=== PATIENT | male | born 1985 | race Caucasian/White ===

== ENCOUNTER 2017-03-02 12:26 | Emergency (ER) | payer SELFPAY ==
[~2017-03-02] VITALS: Ht 188 cm; Wt 113.4 kg
--- NOTE | 2017-03-02 12:52 | Emergency Room Report ---
History of Present Illness General Chief Complaint: Abdominal Pain Present Illness HPI 31 YO Male presents to the ED c/o 05/28 in severity right flank and RLQ pain acute onset with nausea and vomiting x 1 day. pt. denies hx of previous similar episodes, denies hematuria,dysuria, constipation or diarrhea. Pt. denies Pmhx or being rx'd medications, no allergies, no recent travel. pt. states onset of pain was right after eating lunch. Pt. denies fevers, chills, rashes or joint pain. denies blood in the vomit or stool. Denies CP, Palpitations, LOC, AMS, dizziness, Changes in Vision, Sensation, paresthesias, or a sudden severe headache. Allergies: Coded Allergies: No Known Allergies (Unverified , 03/02/17) Patient History Past Medical History: see triage record Past Surgical History: none Pertinent Family History: none Reviewed Nursing Documentation: PMH: Agreed, PSxH: Agreed Review of Systems All Other Systems: negative except mentioned in HPI Physical Exam Vital Signs Date Time Temp Pulse Resp B/P Pulse Ox O2 Delivery O2 Flow Rate FiO2 03/02/17 12:38 97.5 63 18 142/90 98 Room Air Sp02 EP Interpretation: reviewed, normal General Appearance: alert, GCS 15, non-toxic, moderate distress Head: normocephalic, atraumatic Eyes: bilateral eye PERRL, bilateral eye normal inspection ENT: hearing grossly normal, normal pharynx, no angioedema, normal voice Neck: full range of motion, supple/symm/no masses Respiratory: lungs clear, normal breath sounds, speaking full sentences Cardiovascular #1: regular rate, rhythm Gastrointestinal: normal bowel sounds, soft, no guarding, no rebound, other - TTP to right LLQ, pt. also has right CVA TTP, mild RUQ ttp. non- distended , soft abdomen Rectal: deferred Genitourinary: normal inspection, CVA tenderness (R) Musculoskeletal: back normal, gait/station normal, normal range of motion, non- tender Neurologic: alert, oriented x3, responsive, motor strength/tone normal, sensory intact, speech normal Psychiatric: judgement/insight normal, memory normal, mood/affect normal Skin: normal color, no rash, warm/dry, well hydrated Medical Decision Making PA Attestation Dr. Faye is my supervising Physician whom patient management has been discussed with. Diagnostic Impression: Primary Impression: Kidney stones ER Course 31 YO Male presents to the ED c/o 05/28 in severity right flank and RLQ pain acute onset with nausea and vomiting x 1 day. pt. denies hx of previous similar episodes, denies hematuria,dysuria, constipation or diarrhea. Pt. denies Pmhx or being rx'd medications, no allergies, no recent travel. pt. states onset of pain was right after eating lunch. Pt. denies fevers, chills, rashes or joint pain. denies blood in the vomit or stool. Denies CP, Palpitations, LOC, AMS, dizziness, Changes in Vision, Sensation, paresthesias, or a sudden severe headache. Ddx considered but are not limited to Diverticulitis, acute appendicitis, diarrhea,UC, PUD, GE, pancreatitis, gallstone, kidney stone, pyelonephritis, UTI , obstruction. Vital signs: are WNL, pt. is afebrile H&PE are most consistent with possible stone or appendicitis will do lab work , UA, and imaging. ORDERS: -CBC: elevated WBC's at 15.0 with left shift -CMP: unremarkable - Lipase: WNL - UA: RBC's , elevated occult blood, no evidence of infection, suspicious for stone. - CT abdomen and pelvis no contrast: 5mm non obstructing stones in the right and left ureters ( three total) mild hydro, normal appendix per official radiology report. ED INTERVENTIONS: -- 1000NS --4mg IV Morphine for pain ( x 2 ) - Toradol 30mg IV - Flomax PO -1 gram Rocephin IV DISCHARGE: At this time pt. is stable for d/c to home. Will provide printed patient care instructions, and any necessary prescriptions. Care plan and follow up instructions have been discussed with the patient prior to discharge. Labs Test 03/02/17 13:10 White Blood Count 15.0 K/UL (4.8-10.8) Red Blood Count 5.25 M/UL (4.70-6.10) Hemoglobin 15.8 G/DL (14.2-18.0) Hematocrit 44.5 % (42.0-52.0) Mean Corpuscular Volume 85 FL (80-99) Mean Corpuscular Hemoglobin 30.1 PG (27.0-31.0) Mean Corpuscular Hemoglobin Concent 35.5 G/DL (32.0-36.0) Red Cell Distribution Width 11.4 % (11.6-14.8) Platelet Count 321 K/UL (150-450) Mean Platelet Volume 6.5 FL (6.5-10.1) Neutrophils (%) (Auto) 80.9 % (45.0-75.0) Lymphocytes (%) (Auto) 15.5 % (20.0-45.0) Monocytes (%) (Auto) 2.7 % (1.0-10.0) Eosinophils (%) (Auto) 0.4 % (0.0-3.0) Basophils (%) (Auto) 0.6 % (0.0-2.0) Urine Color Nga Urine Appearance Cloudy Urine pH 6 (4.5-8.0) Urine Specific [place] 1.025 (1.005-1.035) Urine Protein 2+ (NEGATIVE) Urine Glucose (UA) Negative (NEGATIVE) Urine Ketones Negative (NEGATIVE) Urine Occult Blood 5+ (NEGATIVE) Urine Nitrite Negative (NEGATIVE) Urine Bilirubin Negative (NEGATIVE) Urine Ictotest Neg Urine Urobilinogen 1 MG/DL (0.0-1.0) Urine Leukocyte Esterase 1+ (NEGATIVE) Urine RBC 15-20 /HPF (0 - 0) Urine WBC 2-4 /HPF (0 - 0) Urine Squamous Epithelial Cells Few /LPF (NONE/OCC) Urine Bacteria Few /HPF (NONE) Sodium Level 143 mEQ/L (135-145) Potassium Level 4.0 mEQ/L (3.4-4.9) Chloride Level 106 mEQ/L (98-107) Carbon Dioxide Level 23 mEQ/L (20-30) Anion Gap 14 (5-15) Blood Urea Nitrogen 16 mg/dL (7-23) Creatinine 1.0 mg/dL (0.7-1.2) Estimat Glomerular Filtration Rate > 60 mL/min (>60) Glucose Level 131 mg/dL (74-106) Calcium Level 9.6 mg/dL (8.6-10.2) Total Bilirubin 0.3 mg/dL (0.0-1.2) Aspartate Amino Transf (AST/SGOT) 21 U/L (5-40) Alanine Aminotransferase (ALT/SGPT) 35 U/L (3-41) Alkaline Phosphatase 66 U/L (40-129) Total Protein 7.2 g/dL (6.6-8.7) Albumin 4.5 g/dL (3.5-5.2) Globulin 2.7 g/dL Albumin/Globulin Ratio 1.6 (1.0-2.7) Lipase 28 U/L (< 60) Last Vital Signs Date Time Temp Pulse Resp B/P Pulse Ox O2 Delivery O2 Flow Rate FiO2 03/02/17 12:38 97.5 63 18 142/90 98 Room Air Disposition: HOME, SELF-CARE Condition: Stable Scripts Ibuprofen* (MOTRIN*) 600 Mg Tablet 600 MG ORAL THREE TIMES A DAY, #30 TAB 0 Refills Prov: Radha Klein 03/02/17 Hydrocodone Bit/Acetaminophen 5-325* (NORCO 5-325 TABLET*) 1 Each Tablet 1 TAB ORAL Q4H Y for For Pain, #10 TAB Prov: Radha Klein 03/02/17 Cephalexin* (KEFLEX*) 500 Mg Capsule 500 MG ORAL EVERY 12 HOURS for 7 Days, #14 CAP 0 Refills Prov: Radha Klein 03/02/17 Patient Instructions: Kidney Stones Additional Instructions: Take medications as directed. Follow up with a Primary Care Provider in 3-5 days, even if your symptoms have resolved. --Please review list of primary care clinics, if you do not already have a primary care provider Return sooner to ED if new symptoms occur, or current symptoms become worse. Do not drink alcohol, drive, or operate heavy machinery while taking [place] as this may cause drowsiness. - Please note that this Emergency Department Report was dictated using [employer] diesel motor mechanic technology software, occasionally this can lead to erroneous entry secondary to interpretation by the dictation equipment. Radha Klein Mar 02, 2017 12:52
[2017-03-02] MEDS ORDERED: Morphine Sulfate 10mg/ml Inj IVP ONE (13:00)
[2017-03-02] MEDS ORDERED: Morphine Sulfate 4mg/ml Inj ONE (13:06)
[2017-03-02] MEDS ORDERED: Morphine Sulfate 4mg/ml Inj IVP ONE ×2 (13:15→13:45)
[2017-03-02 13:21] VITALS: BP 142/90
[2017-03-02 13:21] LABS: APPEARANCE,URINE CLOUDY; KETONES,URINE NEGATIVE (NEGATIVE); LEUKOCYTE ESTERASE ,URINE 1+ (NEGATIVE); NITRITE,URINE NEGATIVE (NEGATIVE); PH,URINE 6 (4.5-8.0); PROTEIN,URINE 2+ (NEGATIVE); UROBILINOGEN,URINE 1 MG/DL (0.0-1.0)
[2017-03-02 13:24] LABS: BASOPHILS % (AUTO) 0.6 % (0.0-2.0); EOSINOPHILS % (AUTO) 0.4 % (0.0-3.0); LYMPHOCYTES % (AUTO) 15.5 % (20.0-45.0); MEAN CORPUSCULAR HEMOGLOBIN 30.1 PG (27.0-31.0); MEAN CORPUSCULAR HGB CONC 35.5 G/DL (32.0-36.0); MEAN CORPUSCULAR VOLUME 85 FL (80-99); MEAN PLATELET VOLUME 6.5 FL (6.5-10.1); MONOCYTES % (AUTO) 2.7 % (1.0-10.0); NEUTROPHILS % (AUTO) 80.9 % (45.0-75.0); PLATELET COUNT 321 K/UL (150-450); RED BLOOD COUNT 5.25 M/UL (4.70-6.10); RED CELL DISTRIBUTION WIDTH 11.4 % (11.6-14.8)
[2017-03-02] MEDS ORDERED: NKM (13:24)
[2017-03-02 13:32] LABS: BACTERIA,URINE FEW /HPF; RBC,URINE 15-20 /HPF (0 - 0); SQUAMOUS EPITHELIAL CELL,UR FEW /LPF (NONE/OCC)
[2017-03-02 13:34] LABS: ICTOTEST NEG
[2017-03-02 13:51] LABS: ALANINE AMINOTRANSFERASE 35 U/L (3-41); ALBUMIN/GLOBULIN RATIO 1.6 (1.0-2.7); ANION GAP 14 (5-15); ASPARTATE AMINO TRANSFERASE 21 U/L (5-40); CALCIUM 9.6 mg/dL (8.6-10.2); CARBON DIOXIDE 23 mEQ/L (20-30); CHLORIDE 106 mEQ/L (98-107); GLOMERULAR FILTRATION RATE > 60 mL/min (>60); HEMOLYSIS 10; SODIUM 143 mEQ/L (135-145); TOTAL PROTEIN 7.2 g/dL (6.6-8.7)
[2017-03-02] MEDS ORDERED: cefTRIAXone 1 GM in NS 55 ML IVPB ONE (14:30)
[2017-03-02] MEDS ORDERED: Tamsulosin 0.4mg cap ORAL SCH (14:30)
[2017-03-02] MEDS ORDERED: Ketorolac 30mg Inj IV ONE (14:30)
[2017-03-02] MEDS ORDERED: IBUPROFEN600 MG ORAL (14:54)
[2017-03-02] MEDS ORDERED: CEPHALEXIN500 MG ORAL (14:54)
[2017-03-02] MEDS ORDERED: NORCO 5-325 TA1 EAC1 ORAL (14:54)
[2017-03-02 15:19] VITALS: BP 134/79
[2017-03-02 15:20] VITALS: BP 134/79
--- NOTE | 2017-03-04 08:40 | Diagnostic Imaging Report ---
Indication: Right flank pain Technique: CT scan of the abdomen and pelvis utilizing automated exposure control without intravenous or oral contrast. Axial, sagittal and coronal images were obtained. CT dose: Total DLP 1182 mGycm; CTDI vol 18.6 mGy Comparison: None Findings: Evaluation of the solid organs is limited without intravenous contrast material. There is mild atelectasis in the lung bases. There is a small hiatal hernia. Liver, adrenal glands, spleen and pancreas are unremarkable. No CT evident gallstones are seen. There is a 5 mm calculus of the right ureteropelvic junction with mild hydronephrosis. Punctate additional nonobstructive bilateral renal calculi are seen. The small bowel loops are normal. There is no evidence of acute appendicitis. Colonic diverticula are present without diverticulitis. Bladder is grossly unremarkable. Osseous structures demonstrate no acute abnormality. Mild degenerative changes of the L4/L5 and L5/S1 levels are seen. Impression: Approximately 5 mm calculus of the right ureteropelvic junction with mild right hydronephrosis. Punctate nonobstructive bilateral renal calculi. Colonic diverticulosis. Small hiatal hernia. The CT scanner at [facility] is accredited by the [employer] and the scans are performed using protocols designed to limit radiation exposure to as low as reasonably achievable to attain images of sufficient resolution adequate for diagnostic evaluation.
== END 2017-03-02 15:22 | disposition home or self-care (01) ==
LOC: EMR 14:08
DX: N20.0 Calculus of kidney (principal)
CPT/HCPCS: 36415; 74176; 80053; 81003; 83690; 85025; 96374; 96375; 99284; J0696; J1885; J2270; J2405